=== PATIENT | male | born 1955 ===

== ENCOUNTER 2017-03-07 07:50 | Emergency (ER) | payer MEDICAID, OTHER ==
[2017-03-07 07:51] VITALS: BMI 24.6
[2017-03-07 08:07] VITALS: RESP 16; O2SAT 98
--- NOTE | 2017-03-07 08:18 | C.PDOC ---
History Of Present Illness 61-year-old male, PMHx includes Hypertension and Renal Transplant, presents to the emergency department with complaints of abdominal pain. Patient states he woke up this morning with epigastric abdominal pain. Pain is persistent in nature and non-radiating. Denies nausea/vomiting, fevers, change in bowel habits or chills. No other complaints at this time. Time Seen by Provider: 03/07/17 08:00 Chief Complaint (Nursing): Abdominal Pain History Per: Patient History/Exam Limitations: no limitations Onset/Duration Of Symptoms: Hrs Current Symptoms Are (Timing): Still Present Severity: Moderate Location Of Pain/Discomfort: Epigastric Past Medical History Reviewed: Historical Data, Nursing Documentation, Vital Signs Vital Signs: Last Vital Signs Temp 97.7 F 03/07/17 08:00 Pulse 69 03/07/17 08:00 Resp 16 03/07/17 08:00 BP 135/82 03/07/17 08:00 Pulse Ox 98 03/07/17 08:20 - Medical History PMH: HTN, End Stage Renal Disease, Chronic Kidney Disease Family History: States: No Known Family Hx - Social History Hx Tobacco Use: No Hx Alcohol Use: No Hx Substance Use: No - Immunization History Hx Tetanus Toxoid Vaccination: Yes Hx Influenza Vaccination: Yes Hx Pneumococcal Vaccination: Yes Review Of Systems Constitutional: Negative for: Fever Cardiovascular: Negative for: Chest Pain Respiratory: Negative for: Cough, Shortness of Breath Gastrointestinal: Positive for: Abdominal Pain. Negative for: Nausea, Vomiting , Diarrhea, Constipation Musculoskeletal: Negative for: Back Pain Physical Exam - Physical Exam Appears: Non-toxic, No Acute Distress Skin: Warm, Dry, No Rash Eye(s): bilateral: Normal Inspection, PERRL Nose: Normal Oral Mucosa: Moist Lips: Normal Appearing Neck: Normal ROM Cardiovascular: Rhythm Regular, No Murmur Respiratory: Normal Breath Sounds, No Accessory Muscle Use Gastrointestinal/Abdominal: Soft, Tenderness (Mild, epigastric), No Guarding, No Rebound Extremity: Normal ROM Neurological/Psych: Oriented x3, Normal Speech ED Course And Treatment - Laboratory Results Result Diagrams: 03/07/17 08:57 03/07/17 08:57 ECG: Interpreted By Me, Viewed By Me ECG Rhythm: Sinus Rhythm ECG Interpretation: No Acute Changes Rate From EC O2 Sat by Pulse Oximetry: 98 (on Room Air) Pulse Ox Interpretation: Normal Medical Decision Making Medical Decision Making: besside us performed shows numerous gallstones - labs imaging pending 1100: pt reassessed. abd soft no ttp, pt sleeping inn nad. no lower abd ttp. us shows gallstones, no e/o of cholecystitis. pt states feelsw ell for d/c. advise pt will need elective removal. no e/o of infection. pt advised outpt f/u and return precautions. Disposition - Disposition Referrals: Дмитрий Kurtz MD [Staff Provider] - [facility] [Outside] [facility] [Outside] [facility] [Outside] Johnie Reynolds [Staff Provider] - Disposition: HOME/ ROUTINE Disposition Time: 11:00 Condition: STABLE Additional Instructions: please follow up with specialists. return to er with worsening symptoms or concerns. Prescriptions: Famotidine [Pepcid] 20 mg PO DAILY #20 tab Instructions: Biliary Colic (ED), Gallstones (ED), Acute Abdominal Pain (ED) Print Language: [id number] - Clinical Impression Clinical Impression: Abdominal pain, Gallstone - Scribe Statement The provider has reviewed the documentation as recorded by the Scribe (Tg Gramajo) All medical record entries made by the Scribe were at my direction and personally dictated by me. I have reviewed the chart and agree that the record accurately reflects my personal performance of the history, physical exam, medical decision making, and the department course for this patient. I have also personally directed, reviewed, and agree with the discharge instructions and disposition.
[2017-03-07 08:56] LABS: URINE BILIRUBIN NEGATIVE (NEGATIVE); URINE BLOOD NEGATIVE (NEGATIVE); URINE CLARITY Clear (Clear); URINE COLOR Yellow (YELLOW); URINE GLUCOSE (UA) NORMAL (Normal); URINE LEUKOCYTE ESTERASE NEG Leu/uL (Negative); URINE NITRATE NEGATIVE (NEGATIVE); URINE PROTEIN NEGATIVE (NEGATIVE); URINE UROBILINOGEN NORMAL mg/dL (0.2-1.0)
[2017-03-07 09:05] LABS: BASO # 0.2 K/uL (0.0-0.2); BASO % 1.8 % (0.0-2.0); EOS # 0.1 K/uL (0.0-0.7); EOS % 0.7 % (0.0-4.0); HEMOGLOBIN 14.4 g/dL (12.0-18.0); LYMPH # 1.1 K/uL (1.0-4.3); LYMPH % 10.3 % (20.0-40.0); MEAN CELL VOLUME 83.2 fL (80.0-94.0); MEAN CORPUSCULAR HEMOGLOBIN 26.7 pg (27.0-31.0); MEAN CORPUSCULAR HGB CONC 32.1 g/dL (33.0-37.0); MEAN PLATELET VOLUME 8.7 fL (7.2-11.7); MONO # 0.9 K/uL (0.0-0.8); MONO % 7.8 % (0.0-10.0); NEUT # 8.8 K/uL (1.8-7.0); NEUT % 79.4 % (50.0-75.0); RBC 5.39 Mil/uL (4.40-5.90); WHITE BLOOD COUNT 11.1 K/uL (4.8-10.8)
[2017-03-07 09:13] LABS: INR 1.1; PROTHROMBIN TIME 11.8 SECONDS (9.7-12.2)
[2017-03-07 09:37] LABS: ALB/GLOB RATIO 1.4 (1.0-2.1); AST/SGOT 112 U/L (17-59); BLOOD UREA NITROGEN 26 mg/dL (9-20); GFR AFRICAN-AMERICAN > 60; GFR NON-AFRICAN AMERICAN 56
[2017-03-07 09:38] LABS: ALT/SGPT 101 U/L (21-72); CALCIUM 9.9 mg/dl (8.6-10.4); LIPASE 94 U/L (23-300)
--- NOTE | 2017-03-07 10:54 | US ---
Abdominal ultrasound History: Abdominal pain. Comparison: None available. Technique: Real-time sonography was performed through the abdomen. Findings: Liver: 12.6 centimeters in length. Increased echogenicity of the hepatic parenchymal cortex suggestive for fatty infiltration versus hepatic parenchymal disease. Clinical correlation. Gallbladder: Cholelithiasis. Calculi measure up to 1.4 centimeters. Normal wall thickness of 2 millimeters. Negative sonographic Og's sign. Common bile duct measures 4 millimeters, within normal limits. Pancreas not well visualized. Spleen measures 12.4 centimeters in length, within normal limits. Visualized aorta and IVC are preserved. Right kidney: 8.2 x 4.5 x 3.9 centimeters. Diminutive. Atrophic. Multiple hypoechoic lesions/ cysts for example an upper pole cyst measures 3.2 x 2.9 centimeters with an adjacent cyst measuring 2.5 x 2.3 centimeters. Right lower quadrant transplant kidney measures 13.9 x 5.9 x 7.4 centimeters. No calculi, mass lesion, or hydronephrosis. Left Kidney: 8.2 x 4.6 x 4.3 centimeters. Diminutive and atrophic appearance. Multiple hypoechoic cysts ; for example, a prominent 5.2 x 2.9 centimeter bilobed multi lobulated cyst is noted in the midpole. Additional cysts noted. Correlation multiphasic CT or MR may be helpful if clinically indicated. Impression: Unremarkable right lower quadrant transplant kidney. Atrophic bilateral table mountain kidneys with multiple bilateral renal low-attenuation lesions/cysts. These may be better evaluated with multiphasic CT scan if clinically indicated. Increased echogenicity of the hepatic parenchymal cortex suggestive for fatty infiltration versus hepatic parenchymal disease. Clinical correlation. Cholelithiasis. Normal gallbladder wall thickness of 2 millimeters. Negative sonographic. Limited visualization of the pancreas.
--- NOTE | 2017-03-07 11:07 | RAD ---
PROCEDURE: CHEST RADIOGRAPH, 1 VIEW HISTORY: chest pain COMPARISON: Move FINDINGS: LUNGS: Suspect minor bibasilar atelectasis PLEURA: No pneumothorax or pleural fluid seen. CARDIOVASCULAR: Normal. OSSEOUS STRUCTURES: No significant abnormalities. VISUALIZED UPPER ABDOMEN: Normal. OTHER FINDINGS: None. IMPRESSION: Suspect minor bibasilar atelectasis
[2017-03-07 11:15] VITALS: BP 131/81; PULSE 79; TEMP 98.2
--- NOTE | 2017-03-10 12:11 | CARD ---
APPROVED REPORT EKG Measurement Heart [id number] <Conclusion> Normal sinus rhythm Normal ECG
== END 2017-03-07 11:14 | disposition home or self-care (01) ==
LOC: C.ER 07:50
DX: K80.20 Calculus of gallbladder without cholecystitis without obstruction (principal)
CPT/HCPCS: 71010; 76700; 80053; 81001; 82948; 83690; 84484; 85025; 85610; 85730; 93005; 96374; 99285; C9113

== ENCOUNTER 2018-09-13 16:32 | Emergency (ER) | payer OTHER, MEDICAID ==
[2018-09-13 16:33] VITALS: BMI 24.6
[2018-09-13 16:58] VITALS: RESP 18; TEMP 98.2; O2SAT 100
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
[2018-09-13 17:46] VITALS: PULSE 71
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
== END 2018-09-13 17:46 | disposition home or self-care (01) ==
LOC: C.ER 16:32
DX: S93.402A Sprain of unspecified ligament of left ankle, initial encounter (principal); S43.402A Unspecified sprain of left shoulder joint, initial encounter; S43.401A Unspecified sprain of right shoulder joint, initial encounter; V03.90XA Pedestrian on foot injured in collision with car, pick-up truck or van, unspecified whether traffic or nontraffic accident, initial encounter